=== PATIENT | female | born 1975 | race American Indian/Alaskan Native ===

== ENCOUNTER 2017-05-26 19:51 | Emergency (ER) | payer MEDICAID ==
[2017-05-26 19:51] VITALS: BMI 23.8
[2017-05-26 20:11] VITALS: O2SAT 100
[2017-05-26] MEDS ORDERED: Naproxen 550 mg Tab PO STA (20:45)
[2017-05-26] MEDS ORDERED: Naproxen 550 mg Tab PO ONE (21:09)
[2017-05-26] MEDS ORDERED: Oxycodone/Acetaminophen 5/325 mg Tab PO STA (21:52)
[2017-05-26] MEDS ORDERED: Oxycodone/Acetaminophen 5/325 mg Tab ONE (22:05)
[2017-05-27 00:46] VITALS: TEMP 97.8
--- NOTE | 2017-05-27 00:53 | CT ---
EXAM: CT Lumbar Spine Without Intravenous Contrast EXAM DATE/TIME: 05/26/2017 10:45 PM CLINICAL HISTORY: 41 years old, female; Pain; Low back pain; Additional info: Persistent back pain TECHNIQUE: Axial computed tomography images of the lumbar spine without intravenous contrast. All CT scans at this facility use one or more dose reduction techniques, viz.: automated exposure control; ma/kV adjustment per patient size (including targeted exams where dose is matched to indication; i.e. head); or iterative reconstruction technique. Coronal and sagittal reformatted images were created and reviewed. COMPARISON: No relevant prior studies available. FINDINGS: VERTEBRAE: Chronic-appearing sclerosis involving the L5 vertebra inferiorly on the right, which is most likely degenerative in etiology. No acute fractures are seen. No evidence of acute vertebral compression fractures. No evidence of significant vertebral subluxation. No evidence of significant vertebral height loss/compression deformity. DISCS/SPINAL CANAL/NEURAL FORAMINA: Degenerative disc disease at L5-S1. There is a broad-based posterior disc bulge at this level. Intervertebral disc heights are preserved. SOFT TISSUES: No acute abnormality of the visualized soft tissues is seen. IMPRESSION: - No acute lumbar spine fractures identified. - Degenerative disc disease at L5-S1. - See above for remaining findings.
--- NOTE | 2017-05-27 01:42 | C.PDOC ---
History Of Present Illness 41 y/o female presents to the ED with c/o sudden onset back pain which occurred while she was cooking earlier today. Patient states she felt a sharp pain to her lower back that radiated into both of her lower extremities. She notes she experienced a similar episode 10 years ago due to a bulging and herniated disc. Patient was then seen by pain management doctor and given three epidural treatments. Patient states she had not experienced severe back pain until today' s occurrence. She denies injury/trauma, urinary/bowel incontinence, extremity numbness/weakness. Time Seen by Provider: 05/26/17 20:12 Chief Complaint (Nursing): Back Pain History Per: Patient History/Exam Limitations: no limitations Onset/Duration Of Symptoms: Hrs Current Symptoms Are (Timing): Still Present Quality Of Discomfort: Sharp, "Pain" Previous Symptoms: Back Pain Associated Symptoms: denies: Incontinence, New Weakness, New Numbness Additional History Per: Patient Past Medical History Reviewed: Historical Data, Nursing Documentation, Vital Signs Vital Signs: Last Vital Signs Temp 97.8 F 05/27/17 00:44 Pulse 58 L 05/27/17 01:48 Resp 20 05/27/17 01:48 BP 109/75 05/27/17 01:48 Pulse Ox 100 05/27/17 01:48 - Medical History PMH: Back Problems, Chronic Pain (sinusitis ) Denies: Chronic Kidney Disease Surgical History: No Surg Hx - [facility] Procedures DIATHER/CRYO TURBINECTOM (09/26/14) ETHMOIDECTOMY (09/26/14) EXC MAX SINUS LESION NEC (09/26/14) SEPTOPLASTY NEC (09/26/14) Family History: States: Unknown Family Hx - Social History Hx Tobacco Use: No Hx Alcohol Use: No Hx Substance Use: No - Immunization History Hx Tetanus Toxoid Vaccination: No Hx Influenza Vaccination: No Hx Pneumococcal Vaccination: No Review Of Systems Genitourinary: Negative for: Incontinence Musculoskeletal: Positive for: Back Pain Neurological: Negative for: Weakness, Numbness Physical Exam - Physical Exam Appears: Non-toxic, No Acute Distress Skin: Normal Color, Warm, Dry Neck: Supple Chest: Symmetrical, No Tenderness Cardiovascular: Rhythm Regular Respiratory: Normal Breath Sounds Back: Vertebral Tenderness (lumbar, bilaterally ), Straight Leg Raising ( positive, at 30 degrees ) Extremity: Normal ROM, Capillary Refill (less than 2 seconds ) Pulses: Left Dorsalis Pedis: Normal, Right Dorsalis Pedis: Normal Neurological/Psych: Oriented x3, Normal Speech, Normal Cognition, Normal Sensation Gait: Steady ED Course And Treatment O2 Sat by Pulse Oximetry: 100 (on RA) Pulse Ox Interpretation: Normal - CT Scan/US CT lumbar spine Other Rad Studies (CT/US): Interpreted By Me, Read By Radiologist, Radiology Report Reviewed CT/US Interpretation: [employer] [facility]. [facility] Division of Radiology. [address] [address]. Tel. no. . . . Patient Name: ANTHONY WEST . Pt. [address]: [address] [place] [address]. Rec #: [id number][place] [address]: Deb Matthews PA-C. Pt Phone: Order Location: [facility] : 1975 Female Age: 41 Order #: [id number]. Reason for exam: persistent back pain. . . . . . CT Scan. . . LUMBAR SPINE W/ O CONTRAST Exam Date: 05/26/17. . This imaging exam was performed at [facility]. EXAM: CT Lumbar Spine Without Intravenous Contrast. . EXAM DATE/TIME: 05/26/2017 10:45 PM. . CLINICAL HISTORY: 41 years old, female; Pain; Low back pain; Additional info: Persistent back. pain. . TECHNIQUE: Axial computed tomography images of the lumbar spine without intravenous. contrast. All CT scans at this facility use one or more dose reduction. techniques, viz.: automated exposure control; ma/ kV adjustment per patient size. (including targeted exams where dose is matched to indication; i.e. head); or. iterative reconstruction technique. Coronal and sagittal reformatted images were created and reviewed. . COMPARISON: No relevant prior studies available. . FINDINGS: VERTEBRAE: Chronic-appearing sclerosis involving the L5 vertebra inferiorly. on the right , which is most likely degenerative in etiology. No acute. fractures are seen. No evidence of acute vertebral compression fractures. No. evidence of significant vertebral subluxation. No evidence of significant. vertebral height loss/compression deformity. DISCS/SPINAL CANAL/NEURAL FORAMINA: Degenerative disc disease at L5-S1. There is a broad-based posterior disc bulge at this level. Intervertebral disc. heights are preserved. SOFT TISSUES : No acute abnormality of the visualized soft tissues is seen. . IMPRESSION: - No acute lumbar spine fractures identified. - Degenerative disc disease at L5-S1. - See above for remaining findings. Progress Note: Motrin PO and Valium PO administered. Patient reports no changes in symptoms. Percocet PO administered. Pt states her pain has still not improved and she is unable to fully ambulate. CT LS Spine ordered and reviewed. Morphine IM administered. Patients [facility] records reviewed. Patient has no current records of narcotic prescriptions. On reassessment, patient reports her back pain has improved and is ambulatory. Patient reports nausea and was given Zofran PO. Patient is now ambulatory and stable for discharge. Disposition Counseled Patient/Family Regarding: Diagnosis, Need For Followup, Rx Given - Disposition Referrals: Francisco Bell MD [Staff Provider] - Disposition: HOME/ ROUTINE Disposition Time: 01:42 Condition: STABLE Additional Instructions: Take meds as directed Follow up with PMD for pain management referral Return to ER if severe pain, leg weakness, numbness, incontinence or worse Prescriptions: Cyclobenzaprine [Cyclobenzaprine HCl] 10 mg PO BID #10 tab Naproxen [Naprosyn] 1 tab PO BID PRN #20 tab PRN Reason: Pain oxyCODONE/Acetaminophen [Percocet 5/325 mg Tab] 1 tab PO QID PRN #14 tab PRN Reason: Pain Instructions: Acute Low Back Pain (ED), Lumbar Radiculopathy (ED) Forms: [employer] (Maltese), Work Excuse - Clinical Impression Clinical Impression: Low back pain - 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 - Scribe Statement The provider has reviewed the documentation as recorded by the Scribe (Fior Gonzalez) All medical record entries made by the Scribe were at my direction and personally dictated by me. I have reviewed the chart and agree that the record accurately reflects my personal performance of the history, physical exam, medical decision making, and the department course for this patient. I have also personally directed, reviewed, and agree with the discharge instructions and disposition.
[2017-05-27 01:48] VITALS: BP 109/75; PULSE 58; RESP 20
== END 2017-05-27 02:21 | disposition home or self-care (01) ==
LOC: C.ER 19:51
DX: M54.5 Low back pain (principal)
CPT/HCPCS: 72131; 96372; 99284; J2270

== ENCOUNTER 2018-04-30 17:46 | Emergency (ER) | payer MEDICAID ==
[2018-04-30 18:16] VITALS: BMI 24.3
[2018-04-30 18:32] VITALS: TEMP 97.7
--- NOTE | 2018-04-30 19:09 | C.PDOC ---
History Of Present Illness 42 y/o female presents to the ED complaining of bilateral knee pain that began today. 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 Pain is worse with movement. She denies taking any pain meds prior to arrival. Denies any fall or direct trauma. No other injury reported. Time Seen by Provider: 04/30/18 18:25 Chief Complaint (Nursing): Lower Extremity Problem/Injury History Per: Patient History/Exam Limitations: no limitations Onset/Duration Of Symptoms: Hrs Current Symptoms Are (Timing): Still Present Past Medical History Reviewed: Historical Data, Nursing Documentation, Vital Signs Vital Signs: Last Vital Signs Temp 97.7 F 04/30/18 18:15 Pulse 74 04/30/18 18:15 Resp 16 04/30/18 18:15 BP 107/73 04/30/18 18:15 Pulse Ox 98 04/30/18 18:15 - Medical History PMH: Back Problems, Chronic Pain (sinusitis ) Denies: Chronic Kidney Disease - [facility] Procedures DIATHER/CRYO TURBINECTOM (09/26/14) ETHMOIDECTOMY (09/26/14) EXC MAX SINUS LESION NEC (09/26/14) SEPTOPLASTY NEC (09/26/14) Family History: States: Unknown Family Hx - Social History Hx Tobacco Use: No Hx Alcohol Use: No Hx Substance Use: No - Immunization History Hx Tetanus Toxoid Vaccination: No Hx Influenza Vaccination: No Hx Pneumococcal Vaccination: No Review Of Systems Except As Marked, All Systems Reviewed And Found Negative. Constitutional: Negative for: Fever Musculoskeletal: Positive for: Leg Pain (Bilateral knee pain) Neurological: Negative for: Weakness, Numbness, Incoordination Physical Exam - Physical Exam Appears: Well, Non-toxic, No Acute Distress Skin: Warm, Dry, No Rash Head: Atraumatic, Normacephalic Eye(s): bilateral: Normal Inspection Extremity: Normal ROM, Tenderness (to bilateral knees, (-) anterior drawers sign, (-) valgus and varus stress), No Calf Tenderness, Capillary Refill (less than 2 sec), Swelling (soft tissue swelling to both knees, no effusion) Pulses: Left Dorsalis Pedis: Normal, Right Dorsalis Pedis: Normal Neurological/Psych: Oriented x3, Normal Motor, Normal Sensation, Other (No focal deficits) ED Course And Treatment O2 Sat by Pulse Oximetry: 98 (RA) Pulse Ox Interpretation: Normal Medical Decision Making Medical Decision Making: Impression: Knee pain Plan: --Motrin 600 mg PO --Tylenol 975 mg PO --Bilateral knee x-ray preliminary read of xray no fractures Disposition Counseled Patient/Family Regarding: Studies Performed, Need For Followup, Rx Given - Disposition Referrals: Francisco Bell MD [Staff Provider] - Disposition: HOME/ ROUTINE Disposition Time: 19:09 Condition: STABLE Additional Instructions: follow up with your doctor within 2 days call to make an appointment take medications as prescribed return to ER if symptoms worsens or progress rest, ice, elevate Prescriptions: Naproxen [Naprosyn] 500 mg PO BID PRN #16 tab PRN Reason: Pain, Moderate (4-7) Instructions: Knee Pain Forms: General Discharge Instructions, [facility] (Danish), Work Excuse - Clinical Impression Clinical Impression: Joint pain - Scribe Statement The provider has reviewed the documentation as recorded by the Devyn Galicia Provider Attestation: All medical record entries made by the Bronwynibzara were at my direction and personally dictated by me. I have reviewed the chart and agree that the record accurately reflects my personal performance of the history, physical exam, medical decision making, and the department course for this patient. I have also personally directed, reviewed, and agree with the discharge instructions and disposition.
--- NOTE | 2018-04-30 19:10 | C.PDOC ---
History Of Present Illness 42 y/o female presents to the ED complaining of bilateral knee pain that began today. 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 Pain is worse with movement. She denies taking any pain meds prior to arrival. Denies any fall or direct trauma. No other injury reported. Time Seen by Provider: 04/30/18 18:25 Chief Complaint (Nursing): Lower Extremity Problem/Injury Past Medical History Vital Signs: Last Vital Signs Temp 97.7 F 04/30/18 18:15 Pulse 74 04/30/18 18:15 Resp 16 04/30/18 18:15 BP 107/73 04/30/18 18:15 Pulse Ox 98 04/30/18 18:15 - Medical History PMH: Back Problems, Chronic Pain (sinusitis ) Denies: Chronic Kidney Disease - [facility] Procedures DIATHER/CRYO TURBINECTOM (09/26/14) ETHMOIDECTOMY (09/26/14) EXC MAX SINUS LESION NEC (09/26/14) SEPTOPLASTY NEC (09/26/14) Family History: States: Unknown Family Hx - Social History Hx Tobacco Use: No Hx Alcohol Use: No Hx Substance Use: No - Immunization History Hx Tetanus Toxoid Vaccination: No Hx Influenza Vaccination: No Hx Pneumococcal Vaccination: No ED Course And Treatment O2 Sat by Pulse Oximetry: 98 Disposition - Disposition
[2018-04-30 19:18] VITALS: BP 100/70; PULSE 80; RESP 14
[2018-04-30 20:31] VITALS: O2SAT 98
--- NOTE | 2018-05-01 18:19 | RAD ---
Date of service: 04/30/2018 PROCEDURE: Bilateral Knee Radiographs. HISTORY: knee pain COMPARISON: None. FINDINGS: BONES: Right Knee: Normal. No fracture. Left Knee: Normal. No fracture. JOINTS: Right Knee: Normal. No osteoarthritis. Left knee: Normal. No osteoarthritis. SOFT TISSUES: Right Knee: Normal. Left Knee: Normal. JOINT EFFUSION: Right Knee: None. Left Knee: None. OTHER FINDINGS: None. IMPRESSION: Normal radiographs of the knees.
== END 2018-04-30 19:18 | disposition home or self-care (01) ==
LOC: C.ER 17:46
DX: M25.562 Pain in left knee (principal); M25.561 Pain in right knee